=== PATIENT | female | born 1955 | race Caucasian/White ===

== ENCOUNTER → 2020-08-10 08:50 | Outpatient (CLI) | payer OTHER, SELFPAY ==
--- NOTE | 2020-08-10 | DI.US.S_ITS ---
LIMITED ULTRASOUND OF RIGHT BREAST: 08/10/2020 CLINICAL: Patient returns today to evaluate a focal asymmetry in the right breast. Comparison is made to exams dated: 08/10/2020 mammogram - [facility], 07/28/2020 mammogram, 07/28/2020 mammogram, 05/02/2019 mammogram, 05/02/2019 mammogram, and 03/22/2018 mammogram - [facility]. Color flow and real-time ultrasound of the right breast 9 o'clock region were performed. Knowles scale images of the real-time examination were reviewed. There is a benign 0.6 cm complicated cyst in the right breast central to the nipple middle depth. IMPRESSION: BENIGN The 0.6 cm asymmetry in the right breast is a minimally complicated cyst and is benign. Return to annual mammogram screening schedule is recommended. This exam was interpreted at Station ID: [id number]. Electronically Signed By: Vick Hong M.D. jr/:08/10/2020 10:21:01 letter sent: Normal Exam Ultrasound BI-RADS: 2 Benign
--- NOTE | 2020-08-10 | DI.MG.S_ITS ---
UNILATERAL RIGHT DIGITAL DIAGNOSTIC MAMMOGRAM 3D/2D WITH ADDITIONAL VIEWS POST MASTECTOMY: 08/10/2020 CLINICAL: Additional evaluation requested from prior study. Comparison is made to exams dated: 07/28/2020 mammogram, 05/02/2019 mammogram, and 03/22/2018 mammogram - [facility]. There are scattered fibroglandular elements in right breast. The 0.6 cm focal asymmetry in the right breast at 9 o'clock middle depth persists with spot compression. IMPRESSION: INCOMPLETE: NEEDS ADDITIONAL IMAGING EVALUATION The 0.6 cm focal asymmetry in the right breast resembles a cyst but is indeterminate. An ultrasound is recommended. This exam was interpreted at Station ID: [id number]. NOTE: For mammograms, a report in lay terms will be sent to the patient. Approximately 15% of breast malignancies will not be visualized mammographically. In the management of a palpable breast mass, a negative mammogram must not discourage biopsy of a clinically suspicious lesion. Electronically Signed By: Vick Hong M.D. jr/:08/10/2020 10:19:50 ACR BI-RADS Category 0: Incomplete [id number]
== END ==
PROVIDERS: PCP Nurse Practitioner Family; Referring Provider Nurse Practitioner Family; Visit Provider Nurse Practitioner Family
DX: R92.8 Other abnormal and inconclusive findings on diagnostic imaging of breast (principal); N60.01 Solitary cyst of right breast
CPT/HCPCS: 76642; 77065; G0279